=== PATIENT | male | born 1985 | race Caucasian/White ===

== ENCOUNTER 2021-04-09 21:28 | Emergency (ER) | payer OTHER, SELFPAY ==
[2021-04-09 21:28] VITALS: BP 131/64; PULSE 97; RESP 15; TEMP 36.3; O2SAT 96; BMI 38.4
--- NOTE | 2021-04-09 22:08 | ED.VIS.LOWEX ---
HPI History of Present Illness HPI Narrative: Presents valuation left knee injury half hour prior to arrival. States at a libertarian slipped on grass, buckled. No falls or head injuries. States he was drinking throughout the day. Pain worse with weightbearing. Denies hip or ankle pain. Denies any past medical history. States he was dropped off by his . Chief Complaint: Lower Extremity Injury Informant: patient Narrative Prior similar symptoms: No PFSH PFSH Medical History Depressed Home Medications escitalopram oxalate 10 mg PO DAILY 04/09/21 [History Last Taken Unknown] ibuprofen 600 mg PO Q6H PRN PRN #20 tab 04/09/21 [Rx Last Taken Unknown] Allergy/AdvReac Type Severity Reaction Status Date / Time No Known Allergies Allergy Verified 04/09/21 21:31 Social History Smoking Status: Never smoker ROS ROS ED Constitutional Constitutional ED: Denies chills, fever(s) or sweats Eyes Eyes: Denies change in vision ENT ENT ED: Denies dysphagia or sore throat Cardiovascular Cardiovascular: Denies chest pain, leg edema, palpitations or racing heartbeat Respiratory/Chest Respiratory/Chest: Denies cough, dyspnea or dyspnea on exertion Gastrointestinal Gastrointestinal: Denies abdominal pain, diarrhea, nausea or vomiting Genitourinary Genitourinary ED: Denies dysuria, hematuria or urinary frequency Musculoskeletal Musculoskeletal: Reports arthralgias; Denies back pain, extremity pain or neck pain Integumentary Denies rash or wounds Neurologic Neurologic: Denies headache(s), paresthesias or weakness EXAM Physical Exam Const Vital Signs: 04/09/21 21:28 Temperature 97.3 F L Temperature Source Temporal Pulse Rate 97 Respiratory Rate 15 Blood Pressure 131/64 H Blood Pressure Mean 86 Pulse Ox 96 Oxygen Delivery Method Room Air Somnolent from alcohol, however awakens and answers questions. Positive well nourished and well developed General Appearance ED: well developed and NAD HEENT Reports moist mucous membranes normocephalic and atraumatic Eyes PERRL, EOMs intact bilaterally and conjunctivae normal General Eye ED: Yes normal appearance of both eyes Neck no lymphadenopathy and supple General: Negative for tenderness Chest Wall Chest: Negative for tenderness Resp normal respiratory effort and normal air movement Effort and Inspection: symmetric chest movement; Negative for respiratory distress Cardio regular rate, regular rhythm and no murmurs Peripheral Pulses: pulses 2+ throughout GI normal to inspection, nondistended, normoactive bowel sounds and non-tender Palpation: Negative for guarding or rebound tenderness present Back/Spine no CVA tenderness and no thoracic nor lumbar tenderness Extremity normal to inspection Extremity Narrative: Left lower extremity: Negative logroll. Knee extensor mechanism intact. Negative varus and valgus. Positive Bjorn's. Mild tenderness proximal fibula. No ankle tenderness. Skin intact. Neurovascular intact. General Extremety ED: Negative for edema or tenderness General Extremity: Negative for edema Neuro oriented x3 and no sensory deficits noted Sensorium / Orientation: awake and alert Skin no rashes or lesions noted and no wounds MDM MDM MDM Narrative Medical decision making narrative: Patient on alcohol use today. Somnolent however awakens and answer questions. Nontoxic. X-ray left knee negative for acute process. He did have positive Bjorn's concerns for meniscus inflammation or injury. Discussed internal derangement of left knee. Jorje wrap and crutches. He will be placed on NSAIDs. Follow-up with orthopedics as an outpatient. All questions were answered. Radiography Diagnostic Testin view x-ray left knee: No fracture or dislocation. Discharge Plan Triage Chief Complaint: Lower Extremity Injury ED Provider: Dashawn Butt Dx/Rx/DC Orders Clinical Impression: Acute internal derangement of left knee Instructions: ED Meniscal Injury Knee Poss Prescriptions: New ibuprofen 600 mg tablet 600 mg PO Q6H PRN PRN (Reason: pain) Qty: 20 RF: 0 No Action escitalopram oxalate 10 mg tablet 10 mg PO DAILY RF: 0 Primary Care Provider: Care Physician,No Primary Referrals: Casa Oscar DO [STAFF PHYSICIAN] - 1 Week if not improving Care Physician,No Primary [Primary Care Provider] - Disposition Disposition: Home, Self Care
--- NOTE | 2021-04-09 22:22 | RAD_ITS ---
EXAM: XR LEFT KNEE COMPLETE, 4 OR MORE VIEWS : 1985 CLINICAL INDICATION: injury TECHNIQUE: Four or more views of the left knee. This report was created using [facility] report generation technology. COMPARISON: None. FINDINGS: BONES/JOINTS: Unremarkable. No acute fracture. No subluxation. Normal alignment. Preservation of the joint space. No sclerotic or destructive changes observed. SOFT TISSUES: Unremarkable. No soft tissue swelling or gas. No radiopaque foreign body. RAD/Knee 4 or More Views IMPRESSION: Negative left knee x-rays. at 2310 Reported and signed by: Juan Pablo Balderas MD Electronically Signed: Juan Pablo Balderas MD at 23:10 EDT Tel , Service support ,
[2021-04-09] MEDS: COVID-19 VAC,AD26(JANSSEN)/PF 0.5 ML SYRINGE IM (23:38)
[2021-04-10 00:31] VITALS: BP 129/60; PULSE 79; RESP 18; O2SAT 98
== END 2021-04-10 00:32 | disposition home or self-care (01) ==
PROVIDERS: Emergency Provider Emergency Medicine
DX: M23.92 Unspecified internal derangement of left knee (principal); F32.9 Major depressive disorder, single episode, unspecified; Z79.899 Other long term (current) drug therapy
CPT/HCPCS: 73564; 91303; 99283

== ENCOUNTER → 2021-05-03 06:34 | Outpatient (CLI) | payer OTHER, SELFPAY ==
--- NOTE | 2021-05-03 06:37 | MRI_ITS ---
STUDY: MRI LEFT KNEE REASON FOR EXAM: Left knee pain for 3 weeks after left knee injury. TECHNIQUE: Standardized fat and water weighted pulse sequences were obtained in all 3 orthogonal planes. COMPARISON: Radiographs 04/09/2021. FINDINGS: There is a complex tear of the posterior horn of the medial meniscus (proton-density sagittal images 9-16). Normal hyaline cartilage of the medial femorotibial compartment. There are bone contusions of the posterior aspect of the medial and lateral tibial plateau (T2 coronal images 8-10). There is a bone contusion of the medial femoral condyle (T2 coronal images 10-16). There is a sprain of the superficial fibers of the medial collateral ligament (T2 coronal image 15). Normal distal semimembranosus, gracilis and semitendinosus tendons. Normal lateral meniscus. Normal hyaline cartilage of the lateral femorotibial compartment. There is a very small nondisplaced subchondral fracture of the lateral femoral condyle (proton-density coronal images 13, 14). Normal proximal tibiofibular articulation. There is a mild sprain of the lateral collateral ligament (T2 coronal image 11). Normal popliteus tendon. Normal biceps femoris tendon. There is a complete tear of the mid anterior cruciate ligament (T2 sagittal image 13). There is an interstitial tear of the proximal posterior cruciate ligament (T2 sagittal image 12). There is lateral subluxation of the patella (T2 axial image 10). Normal hyaline cartilage of the patellofemoral compartment. Normal medial and lateral patellar retinaculum. Normal visualized quadriceps tendon. Normal patellar tendon. Normal Hoffa''s fat pad. There is a small joint effusion. There is a small ruptured popliteal cyst (T2 sagittal images 4-7). There is edema in the subcutis adipose space. The otherwise visualized osseous structures are unremarkable. MRI/Lower Ext Joint Only (Routine) IMPRESSION: Anterior cruciate ligament tear. Medial meniscal tear. Interstitial tear of the proximal posterior cruciate ligament. Sprains of the medial collateral and lateral collateral ligaments. Very small subchondral fracture of the lateral femoral condyle, and bone contusions of the medial and lateral tibial plateau and medial femoral condyle. Lateral subluxation of the patella. Small joint effusion. Small ruptured popliteal cyst. The TT-TG distance is 10 mm. Electronically Signed: José Persaud MD at 10:14 EDT Tel , Service support ,
== END ==
PROVIDERS: PCP Family Medicine; Referring Provider Physician Assistant; Visit Provider Physician Assistant
DX: M23.92 Unspecified internal derangement of left knee (principal); S83.412A Sprain of medial collateral ligament of left knee, initial encounter; X58.XXXA Exposure to other specified factors, initial encounter; Y93.9 Activity, unspecified; Y92.9 Unspecified place or not applicable; Y99.9 Unspecified external cause status
CPT/HCPCS: 73721

== ENCOUNTER 2021-06-07 09:28 | Day surgery (SDC) | payer OTHER, SELFPAY ==
[2021-06-07] VITALS (9 sets, daily range): BP systolic 126–154; BP diastolic 74–110; PULSE 57–98; RESP 16–18; TEMP 36.1–36.8; O2SAT 84–100; BMI 38.9
[2021-06-07] MEDS: Lactated Ringers 1,000 ML 100 ML IV (09:57)
--- NOTE | 2021-06-07 10:02 | HP.PCM_ITS ---
History and Physical Date of Admission: 06/07/21 Date of Service: 05/20/21 MR#:[id number]: DAVIDE WOODSRep #:[id number] Provider: DALTON Smith/Sex: 35/M [facility] Int[facility] Intake Visit Reasons: LEFT KNEE Allergies No Known Allergies Allergy (Verified 05/17/21 09:08) Medications escitalopram oxalate 10 mg PO QHS 04/09/21 [History Confirmed 05/20/21] ibuprofen 600 mg PO Q6H PRN PRN #20 tab 04/09/21 [Rx Confirmed 05/20/21] omeprazole 20 mg capsule,delayed release 20 mg PO QHS 04/14/21 [History Confirmed 05/20/21] PFSH Medical History Alcohol use Anxiety Depressed Gastric reflux History of pain when walking Injury of head and neck Loss of hearing Marijuana use Smoker Smoker Surgical History History of placement of ear tubes Hx of appendectomy Hx of wisdom tooth extraction Family History Other Hypertension Social History household members: spouse and children housing: house current occupation: [employer] Smoking Status: Current every day smoker tobacco type: smokeless tobacco Smokeless tobacco user: snuff alcohol intake: current alcohol intake frequency: 0-2 drinks per day do you feel safe at home: Yes HPI LEFT KNEE Details: Parts of this documentation were recorded by a scribe, this documentation accurately reflects the service provided and the decisions made by me, DALTON Combs 05/20/21 1035. DAVIDE WOODS is a 35 year old M here today for left knee pain. Patient states his knee pain is getting worse. Patient states his knee pain is right on the Patella. Patient states he is unable to sleep in his bed at night do to the amount of movement he does during his sleep. Patient has been sleeping on his couch to help with his movement at night. Patient states the pain he has feels as if there is something jabbing him in his knee cap. Patient states he has to keep his knee bent because if he has it out straight with weight he feels like his knee will give out on him. Patient states he can not trust his knee at this point do to the instability. Patient states taking Tylenol does not touch his pain. Patient states he has a constant dull ache. Ortho Exam Left Knee Skin/Wound: No ecchymosis, No erythema and Yes swelling Contralateral Normal: Yes Homans Sign: No Knee ROM: No ROM-Extension -20 to 0 and No ROM-Flexion 0-140 Examination: Yes med jt line tenderness, Yes Lat jt line tenderness, Yes TTP inf pole patella, Yes Pain with flexion, No Bjorn's Test, No TTP Tibial tubercle, No TTP Pes Anserine and No Illiotibial band tenderness Quad Atrophy: No Stability: NML: Valgus 0 and NML: Varus 0 and 1+: Anterior Drawer and 1+: Danika Apprehension with Lateral Translation: No Popliteal Adenopathy: No KNEE: Inspection of the left knee shows some minor localized swelling on the inferior patella and just below the patella (over bursa region). There is no evident effusions today (this is improved from previous visit.) Patient continues to have some medial and lateral joint line tenderness today (worse medially.) He has still some decreased flexion and extension. Still some guarding during physical exam but is much better today allowing for some further testing. His anterior drawer and Danika test today show some minor laxity maybe a millimeter difference compared to the right knee. I feel this a little more with Danika's test then with anterior drawer. Patient does not allow for pivot shift due to guarding/resistance. Collateral ligaments today do feel stable/sturdy with only minor discomfort today during valgus stress. Patient still has quite a bit of pain/resistance with Bjorn's at the same time no evident catch/click. Continues to have soft compartments in the lower extremity and no calf tenderness and negative Homans. Coding Level of Care Code Off vis,est,level 2 Diagnoses Acute internal derangement of left knee M23.92 MCL sprain of left knee S83.412A ACL (anterior cruciate ligament) rupture S83.519A Medial meniscus tear S83.249A Assessment and Plan Assessment and Plan (1) Acute internal derangement of left knee: Status: Acute (2) MCL sprain of left knee: Status: Acute (3) ACL (anterior cruciate ligament) rupture: Status: Acute (4) Medial meniscus tear: Status: Acute Plan - DALTON Black: Patient presents the office today for update of the left knee. Patient states that last evening the pains were such that it kept him awake today he has localized pain to the anterior aspect of the knee. Today on physical exam he does have some localized welling the inferior aspect of the patella morbid where a bursitis would occur. Is very point tender here even with light touch. Patellar tendon appears intact with intact extension of the knee. He does continue to have some decreased extension approximately 10-15 degrees. he also does have decreased flexion to approximately 95-100 degrees. He still has pain with both flexion and extension. Again there is continued medial lateral joint line pain is more prominent on the medial aspect. With the effusion being down his acute pain subsided he did allow for a little easier evaluation of the ACL today although he still has some guarding. In terms of laxity of the ACL, again there is approximately a millimeter laxity more noted with Danika's impaired the right side. At this time patient continues just to complain of pretty significant instability stating that as soon as he tries to straighten the leg it feels like it wants to just buckled backwards and collapse. He states the brace has helped some but even then still feels unstable. Again on MRI there does show to be the complex tearing of the medial meniscus along with a complete rupture of the ACL. With him having mechanical symptoms along with complex tearing of the meniscus if found to be repairable on arthroscopic evaluation then would likely be something that would be repaired. Decision for meniscal repair versus meniscectomy would be from direct visualization. I did however give patient a prescription for physical therapy that he can begin to do some prehabilitation range of motion and that if proceeding with surgery would help with post operative rehabilitation as well. Patient needs to continue to ice, elevate, and take anti-inflammatory. This note was generated with [employer]ation software. It may contain incorrect words, spelling, and punctuation that were not noted in checking the note before signing. 05/20/21 1511<Electronically signed by Nirav HOFFMAN>Date Nirav Lees Signature:Date (if applicable) CC: ~I have re-examined the patient. There are no clinical changes since date of exam
[2021-06-07] MEDS: Cefazolin 2 GM in 0.9% Normal Saline 100 ML IV (10:47)
[2021-06-07] MEDS: Epinephrine (1 mg/ml) 1 MG/ML VIAL ×2 (11:30)
[2021-06-07] MEDS: Lidocaine 1% /Epi 1:100 (20ml) 20 ML Vial (12:45)
--- NOTE | 2021-06-07 13:02 | OP.PCM_ITS ---
Report of Operation Date of Procedure: 06/07/21 Description of Surgical Findings:: Preoperative diagnosis: Left knee ACL rupture medial meniscus tear Postoperative diagnosis: ACL rupture vertical tear posterior horn medial meniscus Procedure: Arthroscopic ACL reconstruction [with tibialis posterior allograft Arthrex femoral button and a millimeter bio composite interference screw and tibia medial meniscus repair with 360 FasT-Fix [employer] device Anesthesia: General + block EBL: 15 Complications: None Condition: Stable to PACU Indication for procedure: 35-year-old male patient had injury to his left knee sustaining mid substance full-thickness ACL rupture and a peripheral medial meniscus tear seen on MRI. Discussed operative versus nonoperative intervention risk benefits and alternatives were reviewed including risk of bleeding infection nerve, artery, bone, tissue damage, blood clot need for further surgery and continued pain. Expected postoperative course postoperative physical therapy needs Procedure: Patient was met in the preoperative holding area. Once again the operative extremity was identified by both patient and physician and was marked. Patient was met by anesthesia and brought back to the operating room on a wheeled cart and transferred to the operating table in the supine position. Anesthesia was started. A well-padded tourniquet was placed on the right upper thigh. A right lower extremity leg colbert was placed. The left lower extremity was well-padded the end of the bed was flexed to 90 degrees. The patient was prepped and draped in the usual sterile fashion and a timeout was called to ensure the proper patient procedure and extremity were being contemplated. Arthroscopic portals were injected with 0.25 % marcaine with epinephrine in the skin only. An Esmarch was used to exsanguinate the extremity and the tourniquet was inflated to 300 mmHg. On the back table the allograft was prepared with 2 fiber link whipstitches and was sized as an 8-1/2 diameter. 11 blade scalpel was used to make a stab incision in the anterior lateral portal an d the arthroscope was inserted into the intercondylar notch inflow and outflow tubes were attached and arthroscopic visualization began. The medial compartment was entered and 18-gauge gauge spinal needle was used to establish an anterior medial portal the medial compartment with probing there was a vertical tear in the peripheral third of the posterior horn the medial meniscus it was stable in the root and body, it was repaired with a meniscal rasp with the use of a 360 FasT-Fix horizontal mattress suture was placed provide excellent stability to the meniscus the lateral compartment was free of meniscal or cartilage pathology the intercondylar notch was entered the stump of the ACL was found and was debrided and the footprints were prepared on the femoral and tibial side with a shaver and ArthroCare wand. The patellofemoral space was investigated and was free of pathology. At this point the arthroscope was repositioned into the medial portal and the femoral guide was used and set at 110 degrees and with the use of a flip cutter the femoral tunnel was made in the low posterior position the tunnel measured 30 mm. At this point a fiber stick was inserted through the cannula and was retrieved through the lateral portal and hemastated it to itself for later use. Attention was then turned towards the tibial tunnel and once again with the use of a flip cutter set at 55 degrees the tibial tunnel was cut in a retrograde manner. Following this a guidepin was inserted through the tibial tunnel and a reamer was used to open the lateral cortex only. Shaver was then inserted through the tunnel and debris was removed we then retrieved the fiber wire through the tibial tunnel switched our arthroscope to a 70 degree camera and visualize the button passing through the femoral tunnel and flipping once we were assured the button was indeed flipped the graft was then advanced 25 mm into the femoral tunnel the graft was marked. At this point the graft was tensioned and cycled nitinol wire was passed anteriorly on the tibial socket and a 8 mm interference bio composite screw was inserted over the wire the remainder of the tensioning was performed in the femoral tunnel by advancing the white tails of the bone there was excellent positioning of the graft there was no graft impingement in full extension the intra-articular injection was made through the scope suture portals were closed with 3-0 nylon a 3-0 Vicryl was used as a subcutaneous stitch in the tibial incision and 3-0 nylon was used in the skin. Dressing was applied in the form of Xeroform 4 x 4 ABD web roll and an Jorje wrap and knee [place] brace blocking flexion to 90 degrees and allowing full extension patient tolerated the procedure well all counts were correct brought back to the PACU in stable condition. Patient will be toe-touch weightbearing for 6 weeks.
--- NOTE | 2021-06-07 13:10 | EX.PCM.DISCH ---
Discharge Instructions Diet Discharge Diet: No restrictions Dressing / Incision Call your doctor if you observe: Shortness of breath and Chest pain Additional Dressing/Incision Instructions:: Ice and elevate next 72 hours .keep dressing on clean and dry for 48 hours then may remove begin showering daily but do not submerge in tub or pool. After shower may apply Band-Aids . Encourage knee range of motion from 0 to 90 degrees do not bend past 90 degrees toe-touch weightbearing only do not bear weight through operative extremity. No strenuous activity. When not ambulating keep iced and elevated next 72 hours. Do not mix pain medication with recreational drugs or alcohol only take as prescribed can be addictive and abusive, call with any questions or concerns. Follow Up Care Please Follow Up With: Casa Oscar DO When: 2 weeks Test Results: Test results from this visit will be discussed in further detail at your follow-up appointment, if applicable. Discharge Plan Admission Attending Provider: Casa Oscar Primary Care Provider: Satish Martin Discharge Orders/Prescriptions Prescriptions: New acetaminophen [acetaminophen] 500 MG tablet 1,000 mg PO Q6H PRN Qty: 60 RF: 0 cephalexin [cephalexin] 500 MG capsule 1,000 mg PO Q8 Qty: 4 RF: 0 aspirin [Children's Aspirin] 81 mg tablet,chewable 81 mg PO DAILY Qty: 60 RF: 0 oxycodone 5 mg tablet 5 - 10 mg PO Q4H PRN (Reason: pain) 7 Days Qty: 50 RF: 0 No Action omeprazole 20 mg capsule,delayed release(DR/EC) 20 mg PO QHS RF: 0 escitalopram oxalate 10 mg tablet 10 mg PO QHS RF: 0 ibuprofen 600 mg tablet 600 mg PO Q6H PRN PRN (Reason: pain) Qty: 20 RF: 0 Referrals / Follow Up: Satish Martin MD [Primary Care Provider] - Disposition Disposition (needs filled in before D/C Order can be placed): Home, Self Care
[2021-06-07] MEDS: Cefazolin 1 GM/50 ML BAG IV (13:52)
[2021-06-07] MEDS: oxyCODONE 5 MG Tablet PO (15:34)
== END 2021-06-07 16:16 | disposition home or self-care (01) ==
LOC: SDC 09:29 → AC 09:30
PROVIDERS: PCP Family Medicine; Referring Provider Orthopaedic Surgery; Visit Provider Orthopaedic Surgery
PROC: (CPT 29882; principal; 2021-06-07 10:55)
DX: S83.512A Sprain of anterior cruciate ligament of left knee, initial encounter (principal); M23.92 Unspecified internal derangement of left knee; S83.242A Other tear of medial meniscus, current injury, left knee, initial encounter; X58.XXXA Exposure to other specified factors, initial encounter; Y93.9 Activity, unspecified; Y92.9 Unspecified place or not applicable; Y99.9 Unspecified external cause status; K21.9 Gastro-esophageal reflux disease without esophagitis; F32.9 Major depressive disorder, single episode, unspecified; F41.9 Anxiety disorder, unspecified; F17.220 Nicotine dependence, chewing tobacco, uncomplicated; Z79.899 Other long term (current) drug therapy
CPT/HCPCS: 29882; 29888; 64447; C1713; J7120; J2405

== ENCOUNTER 2021-08-26 11:00 | Outpatient (RCR) | payer OTHER, SELFPAY ==
--- NOTE | 2021-06-23 12:51 | HP.PTEVAL ---
Patient's Visit Information DAVIDE WOODS is a 35 year old M referred to Physical Therapy by DALTON Hurt with a diagnosis of L arthroscopic ACL repair and medial meniscus repair 06/07/21. Date of Evaluation: 06/23/21 Physical Therapist: Jamie Gamez, DPT, OCS, CSCS - Visit Plan Frequency: 2-3x /Week Duration: 2-4 Months Plan: 2-3x/week for 3+ months. At this point, nonweightbearing over the next 4 weeks until mid july He should have his brace locked in extension when ambulating. At rest his brace can be unlocked. Work on ROM, do not push past 90, strength NWB hips and knees gently, core strength, gait NWb, FES to quad. Stretch HS and hip flexors. ice at end. Will progress WB in mid July after doctor visit, - Subjective L ACL and meniscal medial repair 06/07/21. Tore it in blow up orb and knee buckled and hurt right away, it gave out when he put weight through it. Knee buckled BW. Went to ER and x ray was Ok. This was beginning of April. Surgery took two months because they ordered MRI and had to wait a week and had bone chip end of femur and waited for that to heal. 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 Was supposed to be crutch WB since injury but had a hard time with that at home. Has been NWB L with crutches since surgery. Has brace since surgery and it is locked and is NWB. Can unlock it to [address] Takes it off at home. Has been icing and propping. No exercises. Works at [employer] on feet all day and not worked since surgery. No return to work date yet but thinks it will be at least 3 months from surgery. is on FMLA to help with post surgery. Sleep is OK but not in bed as he rolls too much, He hurt before surgery so slept on couch. Dresses self and socks and shoes take a while. Pain 0-3/10 this week, is on oxycodone. Takes aspirin and ibuprofen. Needs wifes help to take care of kids 9,7 and twin 2 yo. Enjoys hunting and playing with kids./4 wheelers and baseball. Wants to get back to those. - Pain L knee anteriorly Pain Intensity (Out of 10): 0 Pain Intensity Range: 0, 3 Comment: into jacinto. - Objective L nwb WITH CRUTCHES BACK TO pt EVAL MOD i. Transfers I bed and chair. Dons and doffs brace I locked in extension. Sits comfortably without it on. Unable to SLR without slight assist on L. -4 to 90 AROM L knee today, R is 0-125. Hip AROM WFL B but limited ext B to 10 passively. Ankle AROM WNL and strength 5/5. hip strength 3 flexion, 3+ abd and ext. Knee strength not tested today. Patella mildly stiff L vs R. Incision is dressed properly and notivisualized today as patient did not wish it taken off. Pt confident on steps and did not wish to review NWB steps... this is not my first rodeo. UE AROM WFL and strength 5/5. Swelling is mild in L knee and SLR is unable at first and then has lag of 15 degrees. - Balance/Special Test Scores Lower Extremity Functional Score: 12 - Goals Goal 1:: ST: Pt 0-90 degree aROM without pain and continue to heal NWB as instructed, pain 0/10 at all times. Goal Time Frame: 2-4 Weeks Goal 2:: mid term: Full aROM L knee without pain. Goal Time Frame: 8-12 Weeks Goal 3:: walk and steps normal without pain. Goal Time Frame: 8-12 Weeks Goal 4:: Sleep without waking due to discomfort. Goal Time Frame: 4-6 Weeks Goal 5:: return to work. Goal Time Frame: 8-12 Weeks - Rehabilitation Potential Physical Therapy Diagnosis: s/p L knee surgery and related debilities. Rehabilitation Potential: Good - Anticipated Interventions Patient/Client Instruction: Educate patient on: Condition, Plan of Care For the Purpose of:: To decrease pain, To increase ROM, To improve nutrient delivery to tissue, To increase tolerance to activity/condition/position, To improve ability of physical actions for home/community/work/leisure, To improve gait and locomotor functions Therapeutic Exercise to Include: Strength training, Postural training, Flexibilty training, Gait and locomotor training, Passive ROM, Active ROM For the Purpose of:: To decrease pain, To increase ROM, To improve muscle performance and motor function, To increase tolerance to activity/condition/position, To improve ability of physical actions for home/community/work/leisure, To improve gait and locomotor functions Manual Therapy Techniques to Include: Passive ROM For the Purpose of:: To decrease pain, To increase ROM Functional electric stimulation: Yes Cryotherapy (ice pack, ice massage): Yes For the Purpose of:: To decrease swelling/inflammation, To improve muscle performance and motor function Thank you for the opportunity to evaluate your patient. For Medicare and Medicare HMO plans, please review the plan of care and approve it. It will need to be FAXED BACK to us at [phone] for Medicare purposes. For Medicare only, by signing this I certify the plan of care. Please let me know if there are questions or concerns regarding this plan of care. Physician Signature: Date:
--- NOTE | 2021-07-20 11:55 | HP.PTREVAL_ITS ---
DALTON Hurt, It has been my pleasure to treat DAVIDE WOODS over the last 8 visits for L arthroscopic ACL repair and medial meniscus repair 06/07/21. Please see the progress note below for an update on the physical therapy plan of care! Subjective: Saw doctor and released to WBAT adn no TROM needed. Came in without them today with one crutch. Knee has felt good lately without much pain but a little sore since started WB Sunday. Sleep is OK. Not working yet and will f/u with doctor in 6 weeks on Aug 29. HEP started ROM and moving. Basics at home are getting done just slowly. Socks and shoes take some time. has a couple steps at home using R LE. Objective/Function: 0-110 AROM L knee with 0 ext lag with SLR.Limited by tightness anteriorly. R knee 0-124. Walks with some L antalgia but good gait pattern, just feels awkward due to extended NWB period. Steps are preferring R but able to use L up and hard for L descending due to limtied ROM. Overall patient doing well with progressions and pain, Needs more ROM for steps and to progress proprio and strength WB L LE . Appropriate to cotnioumou PT and wishes to be 3x/week. Fair prognosis. Plan Plan: 3x/week for 6 weeks for progression of L knee ROM and strength. Gradual WB progression, stair trainging and fucntional progression to attempt return to work in End August. Balance/Gait/Functional tests - Balance/Special Test Scores Lower Extremity Functional Score: 19 Goals Goal 1:: ST: Pt 0-90 degree aROM without pain and continue to heal NWB as instructed, pain 0/10 at all times. Goal Time Frame: 2-4 Weeks Goal Progress: Goal Met Goal 2:: mid term: Full aROM L knee without pain. Goal Time Frame: 8-12 Weeks Goal Progress: Progressing Goal 3:: walk and steps normal without pain. Goal Time Frame: 8-12 Weeks Goal Progress: Progressing Goal 4:: Sleep without waking due to discomfort. Goal Time Frame: 4-6 Weeks Goal Progress: Goal Met Goal 5:: return to work. Goal Time Frame: 8-12 Weeks Goal Progress: approp Anticipated Interventions Patient/Client Instruction: Educate patient on: Condition, Plan of Care For the Purpose of:: To decrease pain, To increase ROM, To improve nutrient d elivery to tissue, To increase tolerance to activity/condition/position, To improve ability of physical actions for home/community/work/leisure, To improve gait and locomotor functions Therapeutic Exercise to Include: Strength training, Postural training, Flexibilty training, Gait and locomotor training, Passive ROM, Active ROM For the Purpose of:: To decrease pain, To increase ROM, To improve muscle performance and motor function, To increase tolerance to activity/condition/position, To improve ability of physical actions for home/community/work/leisure, To improve gait and locomotor functions Manual Therapy Techniques to Include: Passive ROM For the Purpose of:: To decrease pain, To increase ROM Functional electric stimulation: Yes Cryotherapy (ice pack, ice massage): Yes For the Purpose of:: To decrease swelling/inflammation, To improve muscle performance and motor function Please do not hesitate to contact me at [phone] by phone or if you have questions or concerns regarding this new plan of care! Sincerely, Jamie Gamez, DPT, OCS, CSCS
--- NOTE | 2021-08-26 12:19 | HP.PTREVAL ---
DALTON Hurt, It has been my pleasure to treat DAVIDE WOODS over the last 18 visits for L arthroscopic ACL repair and medial meniscus repair 06/07/21. Please see the progress note below for an update on the physical therapy plan of care! Subjective: Getting better. Pain is achy only and stiffness if sits too long. Sleeping is OK. 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 Not back to work but sees doctor Sunday and wants to be cleared. Work will be understanding. Home life is normal. Feels like life is normal outside of work. Feels like he needs to get back to work. does nt wish to strengthen anymore unless absolutely necesssary. Objective/Function: 0-130 aROM slightly shy of R knee flexion, not painful. Full ext, 0 ext lag today when cued. Steps reciprocal without rail I and some minor weakness noted L LE but functional. No antalgia in gait today. Overall much better and likely can return to work although he can expect some sore stiffness first couple weeks. Recommended cvontinued strength I and he would consider joining but wants to see how return to work goes. Plan Plan: pt to doctor and will stop after that for more strengthening if not returned to work or d/c or long term care phlebotomist f/u if releases. Balance/Gait/Functional tests - Balance/Special Test Scores Lower Extremity Functional Score: 59 Goals Goal 1:: ST: Pt 0-90 degree aROM without pain and continue to heal NWB as instructed, pain 0/10 at all times. Goal Time Frame: 2-4 Weeks Goal Progress: Goal Met Goal 2:: mid term: Full aROM L knee without pain. Goal Time Frame: 8-12 Weeks Goal Progress: Goal Met Goal 3:: walk and steps normal without pain. Goal Time Frame: 8-12 Weeks Goal Progress: Goal Met Goal 4:: Sleep without waking due to discomfort. Goal Time Frame: 4-6 Weeks Goal Progress: Goal Met Goal 5:: return to work. Goal Time Frame: 8-12 Weeks Goal Progress: ready, to doc Sunday Anticipated Interventions Patient/Client Instruction: Educate patient on: Condition, Plan of Care For the Purpose of:: To decrease pain, To increase ROM, To improve nutrient delivery to tissue, To increase tolerance to activity/condition/position, To improve ability of physical actions for home/community/work/leisure, To improve gait and locomotor functions Therapeutic Exercise to Include: Strength training, Postural training, Flexibilty training, Gait and locomotor training, Passive ROM, Active ROM For the Purpose of:: To decrease pain, To increase ROM, To improve muscle performance and motor function, To increase tolerance to activity/condition/position, To improve ability of physical actions for home/community/work/leisure, To improve gait and locomotor functions Manual Therapy Techniques to Include: Passive ROM For the Purpose of:: To decrease pain, To increase ROM Functional electric stimulation: Yes Cryotherapy (ice pack, ice massage): Yes For the Purpose of:: To decrease swelling/inflammation, To improve muscle performance and motor function Please do not hesitate to contact me at [phone] by phone or if you have questions or concerns regarding this new plan of care! Sincerely, Jamie Gamez, DPT, OCS, CSCS
--- NOTE | 2021-10-27 11:44 | HP.PTDCSUM ---
It has been my pleasure to treat DAVIDE WOODS referred by DALTON Hurt, with the diagnosis of L arthroscopic ACL repair and medial meniscus repair 06/07/21 for a total of 18 visit(s). Discharge Date: Please see the following information for a summary of their discharge status. Subjective: Getting better. Pain is achy only and stiffness if sits too long. Sleeping is OK. 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 Not back to work but sees doctor Sunday and wants to be cleared. Work will be understanding. Home life is normal. Feels like life is normal outside of work. Feels like he needs to get back to work. does nt wish to strengthen anymore unless absolutely necesssary. L knee anteriorly Pain Intensity (Out of 10): 0 % Improvement: 80 Objective/Function: 0-130 aROM slightly shy of R knee flexion, not painful. Full ext, 0 ext lag today when cued. Steps reciprocal without rail I and some minor weakness noted L LE but functional. No antalgia in gait today. Overall much better and likely can return to work although he can expect some sore stiffness first couple weeks. Recommended cvontinued strength I and he would consider joining but wants to see how return to work goes. Goal 1:: ST: Pt 0-90 degree aROM without pain and continue to heal NWB as instructed, pain 0/10 at all times. Goal Progress: Goal Met Goal 2:: mid term: Full aROM L knee without pain. Goal Progress: Goal Met Goal 3:: walk and steps normal without pain. Goal Progress: Goal Met Goal 4:: Sleep without waking due to discomfort. Goal Progress: Goal Met Goal 5:: return to work. Goal Progress: ready, to doc Sunday Plan: pt to doctor and will stop after that for more strengthening if not returned to work or d/c or long term care phlebotomist f/u if releases. If there are questions or concerns regarding this patient's physical therapy, please feel free to call me at [phone]. Thank you for the referral of this patient. Sincerely, Jamie Gamez, DPT, OCS, CSCS Balance/Gait/Functional tests - Balance/Special Test Scores Lower Extremity Functional Score: 59
== END 2021-08-26 19:00 | disposition home or self-care (01) ==
LOC: PT 11:00
PROVIDERS: PCP Family Medicine
DX: Z98.890 Other specified postprocedural states (principal)
CPT/HCPCS: 97110; 97161; 97164; 97530

== ENCOUNTER → 2022-06-12 | Outpatient (CLI) | payer OTHER, SELFPAY ==
[2022-06-12 18:00] LABS: Absolute Lymphocyte Count 2.04 X10^3/uL (0.83-4.51); Absolute Neutrophil Count 5.3 X10^3/uL (2.0-7.7); Basophil# 0.05 X10^3/uL; Basophil% 0.6 % (0-1); Eosinophil# 0.07 X10^3/uL; Eosinophils% 0.9 % (0-5); Hematocrit 48.6 % (40-54); Hemoglobin 16.3 g/dL (13.0-16.5); Lymphocyte # 2.04 X10^3/ul (0.83-4.51); Lymphocyte % 25.2 % (19-41); Mean Corp Hgb Conc 33.5 g/dL (32-36); Mean Corpuscular Hgb 29.6 pg (27.0-32.0); Mean Corpuscular Volume 88.2 fL (80-94); Mean Platelet Vol. 10.3 fl (6.2-12.0); Monocyte# 0.61 X10^3/uL; Monocyte% 7.5 % (0-10); NRBC Flagged by Analyzer 0 % (0-5); Neutrophil % 65.4 % (47-70); Platelet Count 258 K/mm3 (150-450); RBC Distribution Width CV 12.4 % (11.6-14.6); RBC Distribution Width SD 40.4 fl (35.1-43.9); Red Blood Count 5.51 M/mm3 (4.6-6.2); White Blood Count 8.1 K/mm3 (4.4-11.0)
[2022-06-12 18:05] LABS: Vitamin B12 1366 pg/mL (211-911); Vitamin D,25 Hydroxy 27.7 ng/mL
[2022-06-12 18:18] LABS: ALB/GLOB Ratio 1.3 RATIO (0.9-2.4); AST(SGOT) 24 U/L (15-37); Alanine Aminotransfer ALT/SGPT 39 U/L (16-61); Albumin, Serum 4.4 g/dL (3.2-5.0); Alkaline Phosphatase 60 U/L (45-117); Anion Gap 5 (5-15); BUN 9 mg/dL (7-18); BUN/Creat Ratio 9.4 RATIO (10-20); Calcium,Total 9.3 mg/dL (8.5-10.1); Chloride 104 mmol/L (98-107); Creatinine, Serum 0.95 mg/dL (0.70-1.30); EST Glomerular Filtration Rate 94 mL/min (>60); Est Glom Filt Rate - Afr Amer 114 mL/min (>60); Globulin 3.3 g/dL (2.2-4.2); Glucose 84 mg/dL (74-106); Potassium 3.6 mmol/L (3.5-5.1); Protein, Total 7.7 g/dL (6.4-8.2); Sodium Level 136 mmol/L (136-145); Thyroid Stim Hormone (TSH) 1.95 uIU/mL (0.358-3.74)
== END | disposition home or self-care (01) ==
LOC: MFPLAB 16:44
PROVIDERS: PCP Family Medicine; Visit Provider Nurse Practitioner Family
DX: R53.83 Other fatigue (principal)
CPT/HCPCS: 36415; 80053; 82306; 82607; 84443; 85025

== ENCOUNTER → 2023-03-29 | Outpatient (CLI) | payer OTHER, SELFPAY ==
--- NOTE | 2023-03-29 15:07 | RAD_ITS ---
STUDY: X-RAY - LEFT ANKLE REASON FOR EXAM: Male, 37 years old. Left ankle injury. Pain. TECHNIQUE: Left ankle x-rays dated August 2014. view(s) of the ankle. COMPARISON: None. FINDINGS: Normal visualized distal tibia and fibula. Normal medial and lateral malleoli. Normal tibiotalar articulation and ankle mortise. Small superior and inferior calcaneal spurs. Pes planus deformity with mild arthrosis of the midfoot. Normal soft tissues. RAD/Ankle min 3 Views IMPRESSION: Mild arthrosis of the mid foot with pes planus deformity with small calcaneal spurs. No acute abnormality. Electronically Signed: Montana Lofton MD at 10:17 EDT ,
== END | disposition home or self-care (01) ==
LOC: MTRAD 15:06
PROVIDERS: PCP Family Medicine; Referring Provider Family Medicine; Visit Provider Family Medicine
DX: M25.572 Pain in left ankle and joints of left foot (principal)
CPT/HCPCS: 73610

== ENCOUNTER → 2024-07-10 | Outpatient (CLI) | payer OTHER, SELFPAY ==
--- NOTE | 2024-07-10 10:16 | RAD_ITS ---
STUDY: X-RAY CHEST REASON FOR EXAM: Male, 38 years old. Cough TECHNIQUE: PA and lateral views of the chest. COMPARISON: None. FINDINGS: Focal infiltrate in the anterior segment of the left lower lobe. There is no demonstrated pleural abnormality. Normal size heart. Normal mediastinum and devon. Normal visualized pulmonary arteries. Normal visualized aortic arch and descending thoracic aorta. Normal visualized thoracic spine. Normal visualized ribs, clavicles, and shoulders. There is no demonstrated abnormality of the visualized soft tissue structures of the upper abdomen. RAD/Chest PA and Lateral IMPRESSION: Focal left lower lobe infiltrate. Follow-up recommended. Electronically Signed: Tavares García MD at 10:51 EST ,
== END | disposition home or self-care (01) ==
LOC: MTRAD 10:14
PROVIDERS: PCP Family Medicine; Referring Provider Physician Assistant Surgical; Visit Provider Physician Assistant Surgical
DX: R05.9 Cough, unspecified (principal)
CPT/HCPCS: 71046